=== PATIENT | female | born 1995 | race Caucasian/White ===

== ENCOUNTER → 2016-09-22 | Outpatient (CLI) | payer BC ==
[~2016-09-22] MED LIST: BUTA-198; IBUP-1114 PO; KEFL500C17 PO; MACR100C43 PO
--- NOTE | 2016-09-23 05:02 | REP ---
Clinical: Anatomical evaluation. Comparison: None . Findings: Examination demonstrates a single live intrauterine in cephalic presentation. motion is identified by technologist. Placenta is noted anteriorly and grade zero without evidence for placenta previa or abruption. Amniotic fluid volume is normal. Cervix measures 4.4 cm in length and appears closed. No evidence for nuchal cord. Gestational age by current measurements 18 weeks 4 days with RADHA 02/19/2017 . FHR equals 141 beats per minute. BPD 4.4 cm 19 weeks 2 days HC 15.6 cm 18 weeks 4 days AC 12.7 cm 18 weeks 2 days FL 2.9 cm 19 weeks 0 days HL 2.8 cm 19 weeks 1 day HC/AC ratio 1.23 Estimated weight 248 grams ( 45th percentile). Anatomical assessment demonstrates normal structures including cranium, choroid plexus, cavum, cerebellum/posterior fossa, facial features, lungs, four-chamber heart/ventricular outflow tracts, diaphragm, stomach, cord insertion/three-vessel cord, kidneys/bladder, spine, and extremities. Impression: Single live intrauterine in cephalic presentation. Anatomical assessment is complete and normal. Signed by Rafa Brandt MD 09/23/2016 04:52 A
== END ==
LOC: M SMT 13:46 → MERGE 13:46
PROVIDERS: ATTEND Obstetrics & Gynecology
DX: Z34.82 Encounter for supervision of other normal pregnancy, second trimester (principal); Z36 Encounter for antenatal screening of mother; Z3A.18 18 weeks gestation of pregnancy

== ENCOUNTER 2016-10-10 00:32 | Emergency (ER) | payer BC ==
[~2016-10-10] VITALS: Ht 170.2 cm; Wt 65.5 kg
[2016-10-10] MEDS ORDERED: BUTA-198 (00:38)
[2016-10-10] MEDS ORDERED: ACETAMINOPHEN 325 MG TAB PO ONE (01:00)
[2016-10-10] MEDS ORDERED: NS 1,000 ML IV ONE (01:00)
[2016-10-10] MEDS ORDERED: cefTRIAXone SOD 2 GM in D5W MINI-BAG PLUS 50 ML IV ONE (01:15)
[2016-10-10 01:33] LABS: BASO % 0.1 % (0.0-1.0); EOS % 0.2 % (0.0-3.0); LARGE UNSTAINED CELL # 0.1 K/mm3 (0.0-0.4); LARGE UNSTAINED CELL % 0.6 % (0.0-4.0); LYMPH # 0.9 K/mm3 (1.5-6.5); MEAN CORPUSCULAR HEMOGLOBIN 30.5 pg (27.0-33.0); MEAN CORPUSCULAR HGB CONC 35.5 g/dl (32.0-36.5); MEAN CORPUSCULAR VOLUME 85.9 fl (80.0-96.0); MONO # 0.6 K/mm3 (0.0-0.8); MONO % 4.6 % (0.0-5.0); NEUTROPHILS # 11.6 K/mm3 (1.8-7.7); NEUTROPHILS % 88.6 % (36.0-66.0); PLATELET COUNT, AUTOMATED 198 k/mm3 (150-450); RED CELL DISTRIBUTION WIDTH 13.9 % (11.5-14.5); WHITE BLOOD COUNT 13.1 K/mm3 (4.0-10.0)
[2016-10-10 02:00] LABS: ALBUMIN 2.9 GM/DL (3.2-5.2); ALBUMIN/GLOBULIN RATIO 0.81 (1.00-1.93); ALKALINE PHOSPHATASE 78 U/L (45-117); ALT/SGPT 14 U/L (12-78); ANION GAP 7 MEQ/L (8-16); AST/SGOT 10 U/L (15-37); BILIRUBIN,DIRECT < 0.1 MG/DL (0.0-0.2); BILIRUBIN,TOTAL 0.4 MG/DL (0.2-1.0); BLOOD UREA NITROGEN 7 MG/DL (7-18); CALCIUM LEVEL 8.3 MG/DL (8.5-10.1); CARBON DIOXIDE LEVEL 24 MEQ/L (21-32); CHLORIDE LEVEL 103 MEQ/L (98-107); CREATININE FOR GFR 0.48 MG/DL (0.55-1.02); GLUCOSE, FASTING 100 MG/DL (70-105); POTASSIUM SERUM 3.2 MEQ/L (3.5-5.1); SODIUM LEVEL 134 MEQ/L (136-145); TOTAL PROTEIN 6.5 GM/DL (6.4-8.2)
[2016-10-10] MEDS ORDERED: MORPHINE 4 MG/ML 1ML SYRINGE IV ONE (02:45)
[2016-10-10] MEDS ORDERED: MACR100C43 PO (04:25)
--- NOTE | 2016-10-10 04:30 | REPUSA ---
Indication: Amniotic fluid evaluation. Findings: Limited ultrasound evaluation reveals a live, intrauterine gestation in breech presentation. he art rate 145 beats per minute. Anterior placenta. The amniotic fluid volume was normal. Amniotic flui d index is 12.2 cm. This is normal for the gestational age. Nuchal CORD was not seen. IMPRESSION: Unremarkable amniotic fluid index.
[2016-10-10 04:35] VITALS: BP 124/68
[2016-10-10] MEDS ORDERED: IBUP-1114 PO (19:46)
[2016-10-10] MEDS ORDERED: KEFL500C17 PO (20:19)
== END 2016-10-10 04:50 | disposition home or self-care (01) ==
LOC: M ED 00:32
DX: N39.0 Urinary tract infection, site not specified (principal); N10 Acute pyelonephritis
CPT/HCPCS: 76815; 80048; 80076; 81001; 83605; 85025; 87040; 87088; 87186; 96374; 96375; 99283; J0696

== ENCOUNTER 2016-10-10 19:37 | Emergency (ER) | payer BC ==
[~2016-10-10] VITALS: Ht 170.2 cm; Wt 65.8 kg
[2016-10-10 19:37] VITALS: BP 139/58
[~2016-10-10 19:37] MED LIST changes: -IBUP-1114 PO; -KEFL500C17 PO
[2016-10-10] MEDS ORDERED: IBUP-1114 PO (19:46)
[2016-10-10] MEDS ORDERED: CEPHALEXIN 500 MG CAP PO ONE (20:15)
[2016-10-10] MEDS ORDERED: KEFL500C17 PO (20:19)
[2016-10-10] MEDS ORDERED: ACETAMINOPHEN TAB 650MG DOSE (2X325MG) PO ONE (20:30)
== END 2016-10-10 20:26 | disposition home or self-care (01) ==
LOC: M ED 19:37
DX: O99.89 Other specified diseases and conditions complicating pregnancy, childbirth and the puerperium (principal); N10 Acute pyelonephritis; R11.0 Nausea; Z3A.21 21 weeks gestation of pregnancy

== ENCOUNTER → 2016-11-13 | Outpatient (CLI) | payer BC ==
[~2016-11-13] MED LIST changes: +IBUP-1114 PO; +KEFL500C17 PO
[2016-11-13 17:07] LABS: MEAN CORPUSCULAR HEMOGLOBIN 30.3 pg (27.0-33.0); MEAN CORPUSCULAR HGB CONC 34.4 g/dl (32.0-36.5); RED CELL DISTRIBUTION WIDTH 13.1 % (11.5-14.5); WHITE BLOOD COUNT 9.2 K/mm3 (4.0-10.0)
== END ==
LOC: M SMT 13:04
PROVIDERS: ATTEND Advanced Practice Midwife
DX: Z34.02 Encounter for supervision of normal first pregnancy, second trimester (principal); Z36 Encounter for antenatal screening of mother

== ENCOUNTER → 2016-11-27 | Outpatient (CLI) | payer BC | LOC: M LAB 07:53 | PROVIDERS: ATTEND Advanced Practice Midwife | DX: R73.02 Impaired glucose tolerance (oral) (principal) ==

== ENCOUNTER → 2016-11-27 | Outpatient (CLI) | payer BC ==
--- NOTE | 2016-11-30 16:42 | REP ---
OB ULTRASOUND: Real-time sonographic evaluation of the gravid uterus is performed. There is a single living intrauterine gestation. The estimated gestational age is 28 weeks. EDC 02/19/2017. Today's measurements indicate appropriate growth. BPD 70 mm = 28 weeks 1 day 50th percentile. HC 254 mm = 27 weeks 4 days 40th percentile. AC 225 mm = 26 weeks 6 day 26th percentile. Femur length 53 mm = 28 weeks 0 days 49th percentile. HC/AC ratio 1.13 within normal range. Estimated weight 1072 grams, 27th percentile. Cervix is closed and measures 3.2 cm in length. heart rate 144 beats per minute. Amniotic fluid within normal limits. DAGOBERTO 9.4 within normal range of 9.4 to 22.8. SEEN/GROSSLY UNREMARKABLE Lateral ventricles Yes Posterior fossa Yes Upper lip Yes Four-chamber heart Yes LVOT Yes RVOT Yes Stomach Yes Cord insertion No Three vessel cord Yes Kidneys Yes Bladder Yes Spine No position: Vertex. Placenta: Anterior and grade 1 with no previa or abruption. Signed by Thai Duarte MD 12/01/2016 01:56 P
== END ==
LOC: M SMT 14:43
PROVIDERS: ATTEND Advanced Practice Midwife
DX: O26.843 Uterine size-date discrepancy, third trimester (principal)

== ENCOUNTER → 2017-01-26 | Outpatient (REF) | payer BC | LOC: M LAB REF 13:17 | PROVIDERS: ATTEND Advanced Practice Midwife | DX: Z34.83 Encounter for supervision of other normal pregnancy, third trimester (principal); Z36.85 Encounter for antenatal screening for Streptococcus B ==

== ENCOUNTER → 2017-02-05 | Outpatient (CLI) | payer BC ==
--- NOTE | 2017-02-05 16:32 | REP ---
The obstetric ultrasound for growth: There is a single intrauterine gestation in a vertex presentation. heart rate is 153 beats per minute. The placenta is anterior. There is no placenta previa. The amniotic fluid volume subjectively is oligohydramnios. The amniotic fluid index is 7.0 (7.3 - 23.8). By today's ultrasound gestational age is 35 weeks 4 days with an RADHA of 03/08/2017. By the first ultrasound 38 weeks 0 days, and by LMP 38 weeks 1 day. weight is 2732 grams (6 pounds, 0 ounces). This is the 20th percentile for 38 weeks 1 day. Umbilical artery Doppler assessment: The resistive index is 0.56 and the SD ratio was 2.32. This is in the normal range. Impression: Oligohydramnios. Signed by Thai Medrano MD 02/05/2017 04:24 P
== END ==
LOC: M SMT 09:39
PROVIDERS: ATTEND Advanced Practice Midwife
DX: Z36.89 Encounter for other specified antenatal screening (principal); Z3A.35 35 weeks gestation of pregnancy; O41.02 Oligohydramnios, second trimester

== ENCOUNTER 2017-02-15 06:30 | Inpatient (IN) | payer BC, OTHER ==
[~2017-02-15] VITALS: Ht 170.2 cm; Wt 77.0 kg
[2017-02-15] VITALS (48 sets, daily range): BP systolic 115–150; BP diastolic 61–88
[2017-02-15] MEDS ORDERED: PRENTAB9 PO (06:43)
[2017-02-15] MEDS ORDERED: TYLE325C PO (06:43)
[2017-02-15] MEDS ORDERED: OXYTOCIN DRIP 30 UNITS in APPROPRIATE DILUENT 1 EA IV SCH (08:00)
[2017-02-15] MEDS: LR 1,000 ML IV SCH ×2 (08:34→14:12)
[2017-02-15 08:44] LABS: MEAN CORPUSCULAR HEMOGLOBIN 26.8 pg (27.0-33.0); MEAN CORPUSCULAR HGB CONC 32.6 g/dl (32.0-36.5); MEAN CORPUSCULAR VOLUME 82.2 fl (80.0-96.0); PLATELET COUNT, AUTOMATED 248 10^3/uL (150-450); RED CELL DISTRIBUTION WIDTH 13.3 % (11.5-14.5)
--- NOTE | 2017-02-15 09:07 | IPNPDOC ---
Text Note Date of Service The patient was seen on 02/15/17. NOTE Obstetrical History and Physical Attending: Margarette Cook MD CC: Onset of labor at term HPI: Patient is a 21 y.o. G 1 P 0-0-0-0 at 39 and 4/7 weeks gestation by US of 11 and 4/7 weeks gestational age presents to the labor for complaining of leakage of fluid and contractions at roughly 4:45 AM this morning. Patient denied having bloody show and felt movement at that time. Patient received care from [facility]. labs have been normal. Estimated date of confinement: 02/18/2017 Care/Lab: Blood type: A + BPs: WNLs Total weight gained: 30 pounds GBS negative Rubella: immune 07/29/16 HIV: none Pap: No history of abnormal pap GC/CT: negative/negative Hep Bs Ag negative 07/29/16 [place]: Counseled VDRL/RPR: non-reactive 07/29/16 Diabetes Screen: negative 3 hour GTT: fasting 78 OB U/S: Anatomy US 09/22/16 SIUP. Placenta anterior, no previa or abruption. Cervix 4.4 cm and closed. EFW 248g, 45%. Anatomical assessment is complete and normal. POB Hx: 1. None PMHx: Meds: Prenatals, Tylenol prn None PSHx: [place] teeth extraction Allergies: No known allergies Social Hx: . Denies cigarette use, etoh use and drug use during . Exam: Vitals: T 98.5 F HR 88 RR 18 BP 135/86 General: Cooperative, appears well. Uncomfortable with contractions. CV: RRR, no murmurs or gallops. Lungs: Clear to auscultation bilaterally. Abdomen: Gravid uterus. EFW: 1072 gm SVE: 2.0 cm/ 80%/ -2station (per Dr. Cook) Monitor: heart rate variability A/P 1.IUP @ 39 and 4 weeks in active labor 2.GBS negative. No antibiotics needed. 3.Anticipate vaginal delivery. Pitocin started per protocol. Continuous monitoring. Syphilis screen ordered. Urine toxicology ordered. Admitted to Labor Floor for over 2 nights stay. GME ATTESTATION GME ATTESTATION My faculty preceptor for this patient encounter was physically present during the encounter and was fully available. All aspects of the patient interview, examination, medical decision making process, and medical care plan development were reviewed and approved by the faculty preceptor. The faculty preceptor is aware and concurs with the plan as stated in the body of this note and will attest to such by his/her cosignature. MARGARETTE PALACIOS DO Feb 15, 2017 08:36
[2017-02-15] MEDS ORDERED: FENTANYL 2MCG/ML ROPIVACAINE 0.2% IN 0.9% NACL 200ML IVBAG As Ordered ONE (12:28)
[2017-02-15] MEDS ORDERED: ePHEDrine SULFATE 25 MG/5 ML(5MG/ML) SYRINGE As Ordered ONE (13:43)
[2017-02-15] MEDS: ePHEDrine SULFATE 25 MG/5 ML(5MG/ML) SYRINGE IV PRN ×2 (13:48→14:20)
[2017-02-15] MEDS ORDERED: FENTANYL/ROPIVACAINE/NACL BAG 200 ML EPIDURAL SCH (14:00)
[2017-02-15] MEDS ORDERED: EPIDURAL COMMENT XX SCH (14:00)
[2017-02-15] MEDS ORDERED: REFRIGERATOR IV KEYS XX PRN (14:00)
[2017-02-15] MEDS ORDERED: LACTATED RINGER'S 1000 ML IV PRN (14:00)
[2017-02-15] MEDS ORDERED: NALOXONE INJ 0.4 MG/1 ML VIAL (J2310) IV PRN (14:00)
[2017-02-15] MEDS ORDERED: diphenhydrAMINE INJ 50MG/ML VIAL (J1200) IV PRN (14:00)
[2017-02-15] MEDS ORDERED: EPIDURAL/PCA KEYS XX PRN (14:00)
[2017-02-15] MEDS ORDERED: ONDANSETRON 4MG/2ML VIAL (J2405) IV PRN ×2 (14:00→19:00)
--- NOTE | 2017-02-15 16:32 | HPE ---
DATE OF ADMISSION: 02/15/2017 21-year-old G1 at 39 4/7th weeks gestation by 11 weeks ultrasound, EDC of 02/18/2017 presents with loss of fluid per vagina at 4:45 am on the morning of admission. Contractions increased in intensity. She continued to leak fluid. She denies vaginal bleeding. COURSE: The patient initiated care at 8 weeks gestation on 08/03/2016. Her first trimester blood pressure was 98/60, weight 138 pounds. Her course was unremarkable. MEDICAL HISTORY: None. SURGERY: [place] teeth removal. ALLERGIES: None. SOCIAL HISTORY: The father of the baby is involved. Patient denies cigarettes, alcohol or drug use during . FAMILY HISTORY: Non-contributory. PHYSICAL EXAMINATION: VITAL SIGNS: Blood pressure 130/78, pulse 84. She appears mildly uncomfortable. HEAD AND NECK EXAM: Is normal. LUNGS: Are clear. HEART: Regular rate and rhythm. ABDOMEN: Is non-tender, and gravid. heart tones category 1. Sterile vaginal exam grossly ruptured with clear fluid noted. Cervix 2 cm, 80%, - station vertex, soft. Contractions every 4-5 minutes. EXTREMITIES: Non-tender. LABS: Blood type A positive, Rubella immune, RPR nonreactive, Hepatitis B and C negative. HIV negative. Group B streptococcus (GBS) negative on 01/26/27. ASSESSMENT: 21-year-old G1 at 39 4/7th weeks gestation with sense of ruptured membranes and early labor. Patient is admitted on 02/15/2017.
[2017-02-15 18:28] LABS: CORD GAS ABE V -4.2; CORD GAS HCO3 V 20.9 MEQ/L; CORD GAS PCO2 V 38.7 mmHg; CORD GAS PH V 7.351 UNITS; CORD GAS PO2 V 23.1 mmHg; CORD GAS SBC V 19.9 MEQ/L; CORD GAS TCO2 V 22.1 MEQ/L
[2017-02-15 18:32] LABS: CORD GAS ABE A -4.1; CORD GAS HCO3 A 22.7 MEQ/L; CORD GAS O2 SAT A 31.9 %; CORD GAS PCO2 A 47.7 mmHg; CORD GAS PH A 7.296 UNITS; CORD GAS PO2 A 17.7 mmHg; CORD GAS SBC A 19.5 MEQ/L; CORD GAS TCO2 A 24.2 MEQ/L
[2017-02-15] MEDS ORDERED: IBUPROFEN 800 MG TAB PO PRN (19:00)
[2017-02-15] MEDS ORDERED: MEASLES,MUMPS,RUBELLA VACCINE INJ (MMR-II) (90707) SC SCH (19:00)
[2017-02-15] MEDS ORDERED: DIBUCAINE 1% OINTMENT 30GM TOP PRN (19:00)
[2017-02-15] MEDS ORDERED: OXYTOCIN DRIP 30 UNITS in APPROPRIATE DILUENT 1 EA IV ONE (19:00)
[2017-02-15] MEDS ORDERED: ACETAMINOPHEN 500 MG TAB PO PRN (19:00)
[2017-02-15] MEDS ORDERED: RHOGAM 300 MCG (1500 IU) INJ (J2790) IM SCH (19:00)
[2017-02-15] MEDS ORDERED: LIDOCAINE 1% MDV INJ 50 ML VIAL INFIL ONE (19:00)
[2017-02-15] MEDS ORDERED: DOCUSATE SODIUM 100 MG CAP PO PRN (19:00)
[2017-02-15] MEDS ORDERED: METHYLERGONOVINE MALEATE 0.2 MG TAB PO PRN (19:00)
[2017-02-16 06:00] VITALS: BP 120/59
[2017-02-16] MEDS: PRENATAL VITAMINS CHEWABLE TABLET PO SCH (07:27)
--- NOTE | 2017-02-16 15:08 | DN ---
DATE OF DELIVERY: 02/15/2017 PREDELIVERY DIAGNOSIS: 39+ weeks, spontaneous rupture of membranes, labor. POSTDELIVERY DIAGNOSIS: Delivered. PROCEDURE: Low forceps assisted vaginal delivery. CLINICAL PROGRAM CONSULTANT: Artur Cook MD ANESTHESIA: Epidural ESTIMATED BLOOD LOSS: 300 mL FINDINGS: 6 pound 14 ounce female infant, Apgars 9 and 9. Arterial blood gas 7.29, base excess -4.1. Venous blood gas 7.35, base excess -4.2. DELIVERY SUMMARY: After approximately 1 hour second stage, the patient had repetitive episodes of bradycardia along with variable decelerations. She appeared to have minimal progress with pushing. Decision made to assist her with forceps at +2 station. Enmanuel-Mahi forceps with Lu[place] modifications applied at +2 station to the occiput anterior (OA) vertex. Delivery was accomplished with a single controlled traction along with maternal effort. There was no nuchal cord. Shoulders delivered with ease. The infant cried spontaneously, was handed to the mother. The infant was then given to the heat and vent aircraft mechanic who was in attendance for delivery. Placenta delivered spontaneously and appeared to be intact. A second degree perineal laceration was repaired with #2-0 chromic in the usual fashion. Sponge and needle counts were correct.
[2017-02-16 18:00] VITALS: BP 122/58
[2017-02-17 06:00] VITALS: BP 121/58
[2017-02-17] MEDS ORDERED: IBUP-1114 PO (08:11)
[2017-02-17] MEDS ORDERED: ACET50TA PO (08:11)
[2017-02-17] MEDS: PRENATAL VITAMINS CHEWABLE TABLET PO SCH (09:00)
== END 2017-02-17 11:45 | disposition home or self-care (01) | DRG 560 ==
LOC: M LDO 06:30 → M LDI 07:56 → M OBS 21:33
PROVIDERS: ADMIT Obstetrics & Gynecology; ATTEND Obstetrics & Gynecology
PROC: 10D07Z3 Extraction of Products of Conception, Low Forceps, Via Natural or Artificial Opening (ICD-10-PCS; principal; 2017-02-15)
PROC: 0KQM0ZZ Repair Perineum Muscle, Open Approach (ICD-10-PCS; 2017-02-15)
DX: O76 Abnormality in fetal heart rate and rhythm complicating labor and delivery (principal); O70.1 Second degree perineal laceration during delivery; Z37.0 Single live birth; Z3A.39 39 weeks gestation of pregnancy

== ENCOUNTER → 2017-02-24 | Outpatient (REF) | payer BC | LOC: M LAB REF 09:17 | DX: R50.9 Fever, unspecified (principal); M79.1 Myalgia | CPT/HCPCS: 87804 ==

== ENCOUNTER → 2018-04-22 | Outpatient (REF) | payer BC, OTHER ==
[~2018-04-22] MED LIST changes: +MAPA500T2 PO; +PRENTAB9 PO; +TYLE325C PO
== END ==
LOC: M LAB REF 17:16
PROVIDERS: ATTEND Advanced Practice Midwife
DX: Z12.4 Encounter for screening for malignant neoplasm of cervix (principal)

== ENCOUNTER → 2019-12-13 | Outpatient (REF) | payer OTHER | LOC: M SFHCWAGY 17:11 | PROVIDERS: ATTEND Specialist | DX: Z01.419 Encounter for gynecological examination (general) (routine) without abnormal findings (principal) ==

== ENCOUNTER → 2021-03-19 | Outpatient (REF) | payer BC, OTHER | LOC: M SFHCWAGY 13:37 | PROVIDERS: ATTEND Specialist | DX: Z12.4 Encounter for screening for malignant neoplasm of cervix (principal); R87.610 Atypical squamous cells of undetermined significance on cytologic smear of cervix (ASC-US) | CPT/HCPCS: 87624; G0123 ==

== ENCOUNTER → 2022-08-25 | Outpatient (CLI) | payer BC, OTHER | LOC: M WUC 13:21 | PROVIDERS: ATTEND Nurse Practitioner Family | DX: M25.562 Pain in left knee (principal) ==

== ENCOUNTER → 2023-02-18 | Outpatient (REF) | payer BC, OTHER | LOC: M SFHCWAGY 13:30 | PROVIDERS: ATTEND Specialist | DX: Z12.4 Encounter for screening for malignant neoplasm of cervix (principal) | CPT/HCPCS: 87624; G0123 ==

== ENCOUNTER → 2024-03-14 | Outpatient (REF) | payer OTHER, BC | LOC: M SFHCWAGY 10:04 | PROVIDERS: ATTEND Specialist | DX: Z01.419 Encounter for gynecological examination (general) (routine) without abnormal findings (principal); R87.610 Atypical squamous cells of undetermined significance on cytologic smear of cervix (ASC-US) | CPT/HCPCS: 87624; G0123 ==

== ENCOUNTER → 2024-04-27 | Outpatient (REF) | payer BC, OTHER | LOC: M SFHCWAGY 08:27 | PROVIDERS: ATTEND Specialist | DX: R87.610 Atypical squamous cells of undetermined significance on cytologic smear of cervix (ASC-US) (principal) ==

== ENCOUNTER → 2024-05-05 | Outpatient (REF) | payer BC, OTHER | LOC: M LAB REF 17:14 | PROVIDERS: ATTEND Physician Assistant | DX: J02.9 Acute pharyngitis, unspecified (principal) ==

== ENCOUNTER → 2024-11-07 | Outpatient (CLI) | payer BC ==
[2024-11-07 20:39] LABS: Trichomonas vaginalis (AMP) NOT DETECTED (NEGATIVE)
[2024-11-07 21:02] LABS: GC DNA AMPLIFICATION NEGATIVE (NEGATIVE)
== END ==
LOC: M PLALAB 14:44
PROVIDERS: ATTEND Advanced Practice Midwife
DX: Z34.01 Encounter for supervision of normal first pregnancy, first trimester (principal); Z34.80 Encounter for supervision of other normal pregnancy, unspecified trimester

== ENCOUNTER → 2024-12-08 | Outpatient (CLI) | payer BC ==
[2024-12-08 18:35] LABS: PLATELET COUNT, AUTOMATED 216 10^3/uL (150-450)
[2024-12-08 19:08] LABS: HIV 1&2 SCREEN NEGATIVE (NEGATIVE)
[2024-12-08 19:16] LABS: HEPATITIS C VIRUS ABY INDEX 0.50 INDEX (<0.8)
== END ==
LOC: M PLALAB 15:28
PROVIDERS: ATTEND Advanced Practice Midwife
DX: Z34.81 Encounter for supervision of other normal pregnancy, first trimester (principal)

== ENCOUNTER → 2024-12-29 | Outpatient (CLI) | payer BC | LOC: M WHC 12:04 | PROVIDERS: ATTEND Advanced Practice Midwife | DX: Z36.89 Encounter for other specified antenatal screening (principal); Z3A.19 19 weeks gestation of pregnancy; O28.3 Abnormal ultrasonic finding on antenatal screening of mother ==

== ENCOUNTER → 2025-01-30 | Outpatient (CLI) | payer BC | LOC: M WHC 15:07 | PROVIDERS: ATTEND Advanced Practice Midwife | DX: Z34.82 Encounter for supervision of other normal pregnancy, second trimester (principal) ==

== ENCOUNTER → 2025-02-26 | Outpatient (CLI) | payer BC ==
[2025-02-26 15:14] LABS: PLATELET COUNT, AUTOMATED 246 10^3/uL (150-450)
[2025-02-26 15:41] LABS: GLUCOSE CHALLENGE TEST 1 HOUR 93 MG/DL (LESS THAN 140)
[2025-02-26 16:15] LABS: Trichomonas vaginalis (AMP) NOT DETECTED (NEGATIVE)
[2025-02-26 16:16] LABS: HIV 1&2 SCREEN NEGATIVE (NEGATIVE)
[2025-02-26 16:24] LABS: HEPATITIS C VIRUS ABY INDEX 0.47 INDEX (<0.8)
[2025-02-26 16:39] LABS: GC DNA AMPLIFICATION NEGATIVE (NEGATIVE)
== END ==
LOC: M PLALAB 12:36
PROVIDERS: ATTEND Advanced Practice Midwife
DX: Z34.82 Encounter for supervision of other normal pregnancy, second trimester (principal)